=== PATIENT | male | born 1990 | race Hispanic/Latino ===

== ENCOUNTER 2018-11-12 11:05 | Emergency (ER) | payer OTHER ==
[2018-11-12] MEDS ORDERED: DEXAMETHASONE SOD PHOSPHATE 10MG/ML 1ML VIAL ONE (11:51)
[2018-11-12] MEDS ORDERED: CEFTRIAXONE SODIUM 1 GM ONE (11:51)
[2018-11-12] MEDS ORDERED: LIDOCAINE HCL-MPF 1% 2ML VIAL ONE (11:51)
== END 2018-11-12 12:21 | disposition home or self-care (01) ==
LOC: EDH 11:05
DX: J02.9 Acute pharyngitis, unspecified (principal); I10 Essential (primary) hypertension; Z72.0 Tobacco use
CPT/HCPCS: 96372 ×2; 99284; J0696; J1100; J3490